=== PATIENT | male | born 1985 | race American Indian/Alaskan Native ===

== ENCOUNTER 2018-05-09 09:41 | Emergency (ER) | payer OTHER ==
[2018-05-09] MEDS ORDERED: Sodium Chloride 0.9% 1,000 ML IV STA (10:10)
--- NOTE | 2018-05-09 10:42 | ED PDOC ---
Arrival/HPI - General Chief Complaint: Male Genitourinary Time Seen by Provider: 05/09/18 10:09 Historian: Patient - History of Present Illness Narrative History of Present Illness (Text): 05/09/18 10:39 33-year-old male with a history of kidney stones presents today with left-sided abdominal pain and back pain. Patient states this morning he was awakened from sleep with sharp stabbing left-sided flank pain radiating into the abdomen. Patient states 3 days ago he was having some dysuria. He denies hematuria. He denies fevers or chills. He is complaining of nausea with one episode of vomiting this morning. He denies dizziness or weakness. No chest pain or shortness of breath. Patient states this pain is similar to when he had kidney stones in the past. He denies any testicular pain. No other complaints Time/Duration: 1-3 hours Symptom Onset: Sudden Symptom Course: Unchanged Quality: Stabbing Severity Level: Moderate Past Medical History - Provider Review Nursing Documentation Reviewed: Yes - Travel History Have you recently traveled outside [place] w/in the past 3 mons?: No - Infectious Disease Hx of Infectious Diseases: None - Renal Hx Kidney Stones: Yes - Psychiatric Hx Substance Use: No Family/Social History - Physician Review Nursing Documentation Reviewed: Yes Family/Social History: Unknown Family HX Smoking Status: Never Smoked Hx Alcohol Use: Yes Frequency of alcohol use: Socially Hx Substance Use: No Allergies/Home Meds Allergies/Adverse Reactions: Allergies No Known Allergies Allergy (Verified 05/09/18 10:09) Review of Systems - Review of Systems Constitutional: absent: Fatigue, Fevers Respiratory: absent: SOB, Cough Cardiovascular: absent: Chest Pain, Palpitations Gastrointestinal: Abdominal Pain, Nausea, Vomiting. absent: Constipation, Diarrhea Genitourinary Male: Dysuria. absent: Frequency, Hematuria, Urinary Output Changes Musculoskeletal: Back Pain. absent: Arthralgias, Neck Pain Skin: absent: Rash, Pruritis Neurological: absent: Headache, Dizziness Psychiatric: absent: Anxiety, Depression Physical Exam Vital Signs Reviewed: Yes Vital Signs Temp Pulse Resp BP Pulse Ox 05/09/18 14:11 75 18 125/69 97 05/09/18 12:53 79 18 128/74 97 05/09/18 11:20 98.2 F 85 18 132/78 97 Temperature: Afebrile Blood Pressure: Normal Pulse: Regular Respiratory Rate: Normal Appearance: Positive for: Well-Appearing, Non-Toxic, Comfortable Pain Distress: None Mental Status: Positive for: Alert and Oriented X 3 - Systems Exam Head: Present: Atraumatic Mouth: Present: Moist Mucous Membranes Neck: Present: Normal Range of Motion Respiratory/Chest: Present: Clear to Auscultation, Good Air Exchange. No: Respiratory Distress, Accessory Muscle Use Cardiovascular: Present: Regular Rate and Rhythm, Normal S1, S2. No: Murmurs Abdomen: Present: Tenderness (minimal llq tenderness). No: Distention, Peritoneal Signs, Rebound, Guarding Back: Present: Normal Inspection, Other (+ left flank tenderness). No: CVA Tenderness, Midline Tenderness Neurological: Present: GCS=15, Speech Normal Skin: Present: Warm, Dry, Normal Color. No: Rashes Psychiatric: Present: Alert, Oriented x 3 Medical Decision Making ED Course and Treatment: 05/09/18 10:41 Patient is nontoxic well appearing with stable vital signs presenting with left- sided flank and left lower abdominal pain CBC wnl CMP wnl CAT scan FINDINGS: LOWER THORAX: Unremarkable. LIVER: Unremarkable. No gross lesion or ductal dilatation. GALLBLADDER AND BILE DUCTS: Unremarkable. PANCREAS: Unremarkable. No gross lesion or ductal dilatation. SPLEEN: Unremarkable. ADRENALS: Unremarkable. No mass. KIDNEYS AND URETERS: Right nephrolithiasis. Mild left hydronephrosis and hydroureter with periureteral fat infiltration proximally and a punctate 1 millimeter calculus at the left UVJ. VASCULATURE: Unremarkable. No aortic aneurysm. BOWEL: Unremarkable. No obstruction. No gross mural thickening. APPENDIX: Unremarkable. Normal appendix. PERITONEUM: Unremarkable. No free fluid. No free air. LYMPH NODES: Unremarkable. No enlarged lymph nodes. BLADDER: Unremarkable. REPRODUCTIVE: Unremarkable. BONES: No acute fracture. OTHER FINDINGS: None. IMPRESSION: Right nephrolithiasis. Mild left hydronephrosis and hydroureter with periureteral fat infiltration proximally and a punctate 1 millimeter calculus at the left UVJ Patient reassessment: pt feeling better after medications. UA: + blood. no leukocytes 05/09/18 14:13 pt reassessment; pt states pain returned and patient vomited once in ER. percocet added for more, zofran given for nausea. case discussed with dr. houston; discussed ct results in depth; will d/c home with flomax, pain meds, nausea meds and f/u with dr. houston. 05/09/18 15:23 pt reassessment; pt feeling better; wants to go home. advised patient of all results and need for f/u with urologist. pt was advised to return immediately if symptoms worsen,persist or if new symptoms develop. Discussed all results with patient in depth Patient verbalizes understanding of discharge instructions and need for immediate followup. all aspects of this case were discussed the attending of record. Impression: kidney stone, hydronephrosis, hydroureter Motrin every 6 hours as needed for pain zofran; 1 tablet every 8 hours as needed for nausea/vomiting. percocet; 1 tablet every 6 hours as needed for moderate to severe pain; may cause drowsiness flomax; 1 tablet daily x 4 days. Follow up with primary care physician within the next 2 days Follow up with the Urologist within the next 2 days. Return immediately if symptoms worsen persist or if new symptoms develop: High fevers, increasing pain, vomiting, diarrhea or any other concerning symptoms develop Re-evaluation Time: 15:24 Reassessment Condition: Re-examined, Improved - Lab Interpretations Lab Results: 05/09/18 10:50 05/09/18 10:50 Lab Results 05/09/18 13:25: Urine Color Yellow, Urine Appearance Clear, Urine pH 8.0, Ur Specific [place] 1.020, Urine Protein Negative, Urine Glucose (UA) Negative, Urine Ketones 40 H, Urine Blood Trace-lysed H, Urine Nitrate Negative, Urine Bilirubin Negative, Urine Urobilinogen 0.2, Ur Leukocyte Esterase Negative, Urine RBC 0 - 2, Urine WBC Negative 05/09/18 10:50: WBC 7.8, RBC 4.94, Hgb 13.8 L, Hct 40.6 L, MCV 82.2, MCH 27.9, MCHC 34.0, RDW 14.8 H, Plt Count 214, MPV 9.5, Gran % 73.5 H, Lymph % (Auto) 19.4 L, [place] % (Auto) 6.2 H, Eos % (Auto) 0.3 L, Baso % (Auto) 0.6, Gran # 5.71 , Lymph # (Auto) 1.5, [place] # (Auto) 0.5, Eos # (Auto) 0.0, Baso # (Auto) 0.05 05/09/18 10:50: Sodium 141, Potassium 4.1, Chloride 105, Carbon Dioxide 24, Anion Gap 16, BUN 17, Creatinine 1.4, Est GFR ( Amer) > 60, Est GFR (Non- Af Amer) 58, Random Glucose 117 H, Calcium 9.0, Total Bilirubin 0.5, AST 67 H, ALT 77 H, Alkaline Phosphatase 52, Total Protein 7.4, Albumin 4.5, Globulin 2.9 , Albumin/Globulin Ratio 1.5, Lipase 45 - RAD Interpretation Radiology Orders: 05/09/18 10:30 ABD & PELVIS W/O PO OR IV CONT [CT] Stat - Medication Orders Current Medication Orders: Discontinued Medications Sodium Chloride (Sodium Chloride 0.9%) 1,000 mls @ 999 mls/hr IV .Q1H1M STA Stop: 05/09/18 11:10 Last Admin: 05/09/18 10:42 Dose: 999 mls/hr eMAR Start Stop Document 05/09/18 10:42 EQ (Rec: 05/09/18 10:42 EQ [email or web address]) Intravenous Solution Start Date 05/09/18 Start Time 10:42 Ketorolac Tromethamine (Toradol) 30 mg IVP STAT STA Stop: 05/09/18 10:11 Last Admin: 05/09/18 10:42 Dose: 30 mg MAR Pain Assessment Document 05/09/18 10:42 EQ (Rec: 05/09/18 10:42 EQ [email or web address] Pain Reassessment Is this a pain reassessment? No Sleep Is patient sleeping during reassessment? No Presence of Pain Presence of Pain Yes IVP Administration Document 05/09/18 10:42 EQ (Rec: 05/09/18 10:42 EQ [email or web address]) Charges for Administration # of IVP Administrations 1 Ondansetron HCl (Zofran Inj) 4 mg IVP STAT STA Stop: 05/09/18 10:31 Last Admin: 05/09/18 10:43 Dose: 4 mg IVP Administration Document 05/09/18 10:43 EQ (Rec: 05/09/18 10:43 EQ [email or web address]) Charges for Administration # of IVP Administrations 1 Ondansetron HCl (Zofran Inj) 4 mg IVP STAT STA Stop: 05/09/18 14:11 Last Admin: 05/09/18 14:36 Dose: 4 mg IVP Administration Document 05/09/18 14:36 MS (Rec: 05/09/18 14:37 MS [email or web address] Charges for Administration # of IVP Administrations 1 Oxycodone/Acetaminophen (Percocet 5/325 Mg Tab) 1 tab PO STAT STA Stop: 05/09/18 14:11 Last Admin: 05/09/18 14:36 Dose: 1 tab MAR Pain Assessment Document 05/09/18 14:36 MS (Rec: 05/09/18 14:36 MS [email or web address] Pain Reassessment Is this a pain reassessment? No Sleep Is patient sleeping during reassessment? No Presence of Pain Presence of Pain Yes Pain Scale Used Pain Scale Used Numeric Location Left, Right or Bilateral Left Pain Location Body Site Back Description Description Constant Intensity of Pain at present 8 Pain Behavior Moaning Tamsulosin HCl (Flomax) 0.4 mg PO STAT STA Stop: 05/09/18 14:17 Last Admin: 05/09/18 14:36 Dose: 0.4 mg Disposition/Present on Arrival - Present on Arrival Any Indicators Present on Arrival: No History of DVT/PE: No History of Uncontrolled Diabetes: No Urinary Catheter: No History of Decub. Ulcer: No History Surgical Site Infection Following: None - Disposition Have Diagnosis and Disposition been Completed?: Yes Diagnosis: Kidney stone, Hydronephrosis, Hydroureter Disposition: HOME/ ROUTINE Disposition Time: 14:20 Patient Plan: Discharge Patient Problems: Current Active Problems Problem Status Onset Hydronephrosis Acute Hydroureter Acute Kidney stone Acute Condition: GOOD Additional Instructions: Motrin every 6 hours as needed for pain zofran; 1 tablet every 8 hours as needed for nausea/vomiting. percocet; 1 tablet every 6 hours as needed for moderate to severe pain; may cause drowsiness flomax; 1 tablet daily x 4 days. Follow up with primary care physician within the next 2 days Follow up with the Urologist within the next 2 days. Return immediately if symptoms worsen persist or if new symptoms develop: High fevers, increasing pain, vomiting, diarrhea or any other concerning symptoms develop Prescriptions: Ibuprofen [Motrin] 600 mg PO Q6H PRN #20 tab PRN Reason: pain/fever reduction Ondansetron [Zofran] 4 mg PO Q8H PRN #6 tab PRN Reason: Nausea/Vomiting oxyCODONE/Acetaminophen [Percocet 5/325 mg Tab] 1 tab PO Q6H PRN #6 tab PRN Reason: moderate to severe pain Tamsulosin [Flomax] 0.4 mg PO DAILY #4 cap Referrals: Ozzy Houston MD [Staff Provider] - Follow up with primary Ella Cordon MD [Staff Provider] - Follow up with primary [facility] [Outside] - Follow up with primary Forms: [facility] (Hebrew), WORK NOTE
[2018-05-09 11:01] LABS: BASO # 0.05 K/mm3 (0.0-2.0); BASO % 0.6 % (0.0-3.0); EOS % 0.3 % (1.5-5.0); GRAN # 5.71 (1.4-6.5); GRAN % 73.5 % (50.0-68.0); HEMOGLOBIN 13.8 g/dL (14.0-18.0); LYMPH # 1.5 (1.2-3.4); LYMPH % 19.4 % (22.0-35.0); MEAN CELL VOLUME 82.2 fl (80.0-105.0); MEAN CORPUSCULAR HEMOGLOBIN 27.9 pg (25.0-35.0); MEAN PLATELET VOLUME 9.5 fl (7.0-11.0); MONO # 0.5 (0.1-0.6); MONO % 6.2 % (1.0-6.0); RBC 4.94 10^6/uL (3.5-6.1); RED CELL DISTRIBUTION WIDTH 14.8 % (11.5-14.5); WHITE BLOOD COUNT 7.8 10^3/ul (4.5-11.0)
[2018-05-09 11:07] LABS: ALB/GLOB RATIO 1.5 (1.1-1.8); ALBUMIN 4.5 g/dL (3.0-4.8); ALT/SGPT 77 U/L (7-56); AST/SGOT 67 U/L (17-59); BLOOD UREA NITROGEN 17 mg/dL (7-21); GFR AFRICAN-AMERICAN > 60; GFR NON-AFRICAN AMERICAN 58; LIPASE 45 U/L (23-300)
[2018-05-09 11:20] VITALS: O2SAT 97
--- NOTE | 2018-05-09 11:35 | CT ---
PROCEDURE: CT Abdomen and Pelvis without intravenous contrast HISTORY: ABDOMINAL PAIN/left flank pain COMPARISON: None. TECHNIQUE: Technique. Contrast dose: Radiation dose: Total exam DLP = mGy-cm. This CT exam was performed using one or more of the following dose reduction techniques: Automated exposure control, adjustment of the mA and/or kV according to patient size, and/or use of iterative reconstruction technique. FINDINGS: LOWER THORAX: Unremarkable. LIVER: Unremarkable. No gross lesion or ductal dilatation. GALLBLADDER AND BILE DUCTS: Unremarkable. PANCREAS: Unremarkable. No gross lesion or ductal dilatation. SPLEEN: Unremarkable. ADRENALS: Unremarkable. No mass. KIDNEYS AND URETERS: Right nephrolithiasis. Mild left hydronephrosis and hydroureter with periureteral fat infiltration proximally and a punctate 1 millimeter calculus at the left UVJ. VASCULATURE: Unremarkable. No aortic aneurysm. BOWEL: Unremarkable. No obstruction. No gross mural thickening. APPENDIX: Unremarkable. Normal appendix. PERITONEUM: Unremarkable. No free fluid. No free air. LYMPH NODES: Unremarkable. No enlarged lymph nodes. BLADDER: Unremarkable. REPRODUCTIVE: Unremarkable. BONES: No acute fracture. OTHER FINDINGS: None. IMPRESSION: Right nephrolithiasis. Mild left hydronephrosis and hydroureter with periureteral fat infiltration proximally and a punctate 1 millimeter calculus at the left UVJ.
[2018-05-09 13:41] LABS: URINE BILIRUBIN NEGATIVE (NEGATIVE); URINE BLOOD TRACE-LYSED (NEGATIVE); URINE GLUCOSE (UA) NEGATIVE (NEGATIVE); URINE LEUKOCYTE ESTERASE NEGATIVE Leu/uL (NEGATIVE); URINE PROTEIN NEGATIVE mg/dL (<30 mg/dL); URINE UROBILINOGEN 0.2 E.U./dL (<1 E.U./dL)
[2018-05-09 13:42] LABS: URINE APPEARANCE CLEAR (CLEAR); URINE COLOR YELLOW (YELLOW)
[2018-05-09 13:52] LABS: URINE RBC 0 - 2 /hpf (0-2); URINE WBC NEGATIVE /hpf (0-6)
[2018-05-09] MEDS ORDERED: Oxycodone/Acetaminophen 5/325 mg Tab PO STA (14:10)
[2018-05-09 16:15] VITALS: BP 120/67; PULSE 79; RESP 16; TEMP 98.1
== END 2018-05-09 16:13 | disposition home or self-care (01) ==
LOC: ED 09:41
DX: N20.0 Calculus of kidney (principal); N13.30 Unspecified hydronephrosis; N13.4 Hydroureter
CPT/HCPCS: 74176; 80053; 81001; 83690; 85025; 87086; 96374; 96375; 96376; 99283; J1885; J2405; J7030